=== PATIENT | male | born 1990 | race Two or more races ===

== ENCOUNTER 2017-01-30 09:54 | Emergency (ER) | payer SELFPAY ==
[2017-01-30 10:06] VITALS: BP 145/83
[2017-01-30] MEDS ORDERED: KETOROLAC TROMETHAMINE 60 MG/2 ML SDV IM ONE (10:27)
--- NOTE | 2017-01-30 10:46 | ER Document Report ---
HPI - HPI Patient complains to provider of: left lower back pain Onset: Other Onset/Duration: Sudden Quality of pain: Achy Severity: Moderate Pain Level: 4 Context: Patient complains of left lower lumbar pain since Wednesday. Patient admits to having previous episodes in the past after heavy lifting. Pain radiates down left leg, patient denies loss of control of bowels or bladder. Associated Symptoms: None Exacerbated by: Movement Relieved by: Remaining still Similar symptoms previously: Yes Recently seen / treated by doctor: No - ROS ROS below otherwise negative: Yes Systems Reviewed and Negative: Yes All other systems reviewed and negative - CONSTITUTIONAL Constitutional: DENIES: Fever - EENT EENT: DENIES: Congestion - NEURO Neurology: DENIES: Headache - CARDIOVASCULAR Cardiovascular: DENIES: Chest pain - RESPIRATORY Respiratory: DENIES: Trouble Breathing - GASTROINTESTINAL Gastrointestinal: DENIES: Abdominal Pain - URINARY Urinary: DENIES: Dysuria, Urgency, Frequency - MUSCULOSKELETAL Musculoskeletal: REPORTS: Back Pain - DERM Skin Color: Normal Skin Problems: None Past Medical History - General Information source: Patient, Relative - Social History Smoking Status: Never Smoker Frequency of alcohol use: Occasional Drug Abuse: None Lives with: Family Family History: Reviewed & Not Pertinent Patient has suicidal ideation: No Patient has homicidal ideation: No - Medical History Medical History: Negative Surgical Hx: Negative Vertical Provider Document - CONSTITUTIONAL Agree With Documented VS: Yes Exam Limitations: No Limitations General Appearance: WD/WN, No Apparent Distress - INFECTION CONTROL TRAVEL OUTSIDE OF THE [place] IN LAST 30 DAYS: No - HEENT HEENT: Atraumatic, Normocephalic - RESPIRATORY Respiratory: Breath Sounds Normal, No Respiratory Distress O2 Sat by Pulse Oximetry: 99 - CARDIOVASCULAR Cardiovascular: Regular Rate, Regular Rhythm - GI/ABDOMEN Gastrointestinal: Abdomen Soft, Abdomen Non-Tender, Normal Bowel Sounds - BACK Notes: L-spine nontender, left lumbar muscles and left buttocks tender to palpation. Pain with right leg raise, but pain is reproduced with left leg raise. - MUSCULOSKELETAL/EXTREMETIES Musculoskeletal/Extremeties: VICENTE CARRANZA - NEURO Level of Consciousness: Awake, Alert, Appropriate - DERM Integumentary: Warm, Dry, No Rash Course - Vital Signs Vital signs: Temp Pulse Resp BP Pulse Ox 99 F 64 16 145/83 H 99 01/30/17 09:58 01/30/17 09:58 01/30/17 09:58 01/30/17 09:58 01/30/17 09:58 Discharge - Discharge Clinical Impression: Back pain of lumbar region with sciatica Condition: Good Disposition: HOME, SELF-CARE Instructions: Ice Packs ([facility]), Warm Packs ([facility]), Low Back Pain ([facility]), Muscle Strain ([facility]), Pain Medication Injection ([facility]) Additional Instructions: Muscle relaxers and ibuprofen as prescribed Heat or ice packs to your back No heavy lifting for 1 week Follow-up with your doctor if not better in 1 week Return as needed Prescriptions: Cyclobenzaprine HCl [Flexeril 5 mg Tablet] 5 mg PO TID #15 tablet Ibuprofen 800 mg PO PRN PRN #30 tablet PRN Reason: Forms: Return to Work
== END 2017-01-30 11:07 | disposition home or self-care (01) ==
LOC: ER 09:54
DX: M54.30 Sciatica, unspecified side (principal); M54.5 Low back pain; M79.605 Pain in left leg; X50.9XXA Other and unspecified overexertion or strenuous movements or postures, initial encounter
CPT/HCPCS: 99283; 96372; J1885

== ENCOUNTER 2017-02-09 06:44 | Emergency (ER) | payer SELFPAY ==
--- NOTE | 2017-02-09 08:11 | ER Document Report ---
ED Neck/Back Problem - General Chief Complaint: Back Pain Stated Complaint: BACK PAIN Time Seen by Provider: 02/09/17 07:53 Mode of Arrival: Ambulatory Information source: Patient Notes: Patient is a 26-year-old male who presents to the ER today for left lower back pain since January 30. Patient was here seen at the ER on January 30, given Motrin and Flexeril but states it is not helping. He states that the back pain is gotten worse. He denies any injury but does do manual labor at work daily. He denies any burning with urination, hematuria, history of kidney stones, numbness , tingling, loss of bladder or bowel function. TRAVEL OUTSIDE OF THE [place] IN LAST 30 DAYS: No Past Medical History - General Information source: Patient, Relative - Social History Smoking Status: Never Smoker Family History: Reviewed & Not Pertinent Patient has suicidal ideation: No Patient has homicidal ideation: No Renal/ Medical History: Denies: Hx Peritoneal Dialysis Review of Systems - Review of Systems Constitutional: No symptoms reported EENT: No symptoms reported Cardiovascular: No symptoms reported Respiratory: No symptoms reported Gastrointestinal: No symptoms reported Genitourinary: No symptoms reported Male Genitourinary: No symptoms reported Musculoskeletal: See HPI Skin: No symptoms reported Hematologic/Lymphatic: No symptoms reported Neurological/Psychological: No symptoms reported Physical Exam - Vital signs Vitals: Temp Pulse Resp BP Pulse Ox 98.4 F 82 18 147/73 H 98 02/09/17 06:49 02/09/17 06:49 02/09/17 06:49 02/09/17 06:49 02/09/17 06:49 - Notes Notes: PHYSICAL EXAMINATION: GENERAL: Appears uncomfortable, holding left flank in no acute distress. HEAD: Atraumatic, normocephalic. EYES: Pupils equal round and reactive to light, extraocular movements intact, sclera anicteric, conjunctiva are normal. ENT: ear canals without erythema or foreign body, TMs pearly bedoya with good bony landmarks, nares patent, oropharynx clear without exudates. Moist mucous membranes. NECK: Normal range of motion, supple without lymphadenopathy LUNGS: CTAB and equal. No wheezes rales or rhonchi. HEART: Regular rate and rhythm without murmurs ABDOMEN: Soft, no tenderness. No guarding, no rebound BACK: no vertebral tenderness, normal ROM GI/: left CVA tenderness EXTREMITIES: Normal range of motion, no pitting edema. No cyanosis. NEUROLOGICAL: Cranial nerves grossly intact. Normal sensory/motor exams. PSYCH: Normal mood, normal affect. SKIN: Warm, Dry, normal turgor, no rashes or lesions noted Course - Re-evaluation Re-evalutation: 02/09/17 09:29 Patient's lab work is unremarkable today, normal CRP, normal white count, normal urinalysis without hematuria or signs of infection. Patient will be sent home on a different muscle relaxer and told to use heat pack as he has not been doing that. - Vital Signs Vital signs: Temp Pulse Resp BP Pulse Ox 98.4 F 82 18 147/73 H 98 02/09/17 06:49 02/09/17 06:49 02/09/17 06:49 02/09/17 06:49 02/09/17 06:49 - Laboratory Result Diagrams: 02/09/17 08:25 Discharge - Discharge Clinical Impression: Low back pain Qualifiers: Chronicity: acute Back pain laterality: left Sciatica presence: without sciatica Qualified Code(s): M54.5 - Low back pain Condition: Stable Disposition: HOME, SELF-CARE Instructions: Warm Packs ([facility]), Muscle Strain ([facility]) Additional Instructions: Return immediately for any new or worsening symptoms. Follow up with primary care provider, call tomorrow to make followup appointment. Prescriptions: Methocarbamol [Robaxin 500 mg Tablet] 1,000 mg PO BID PRN #40 tablet PRN Reason: Forms: Return to Work
[2017-02-09 08:42] LABS: ABSOLUTE EOSINOPHILS # (AUTO) 0.1 10^3/uL (0.0-0.6); ABSOLUTE MONOCYTES (AUTO) 0.6 10^3/uL (0.1-1.4); APPEARANCE,URINE CLEAR; BASOPHILS % (AUTO) 0.6 % (0-2); BILIRUBIN,URINE NEGATIVE (NEGATIVE); EOSINOPHILS % (AUTO) 1.6 % (0-6); GLUCOSE, URINE NEGATIVE (NEGATIVE); HEMATOCRIT 48.4 % (37.9-51.0); HEMOGLOBIN 16.9 g/dL (13.5-17.0); HGB HCT DIFFERENCE 2.3; KETONES,URINE NEGATIVE (NEGATIVE); LEUKOCYTE ESTERASE,URINE NEGATIVE (NEGATIVE); LYMPHOCYTES % (AUTO) 34.4 % (13-45); MEAN CORPUSCULAR HEMOGLOBIN 31.7 pg (27.0-33.4); MEAN CORPUSCULAR VOLUME 91 fl (80-97); NITRITE,URINE NEGATIVE (NEGATIVE); PROTEIN,URINE NEGATIVE (NEGATIVE); RED BLOOD COUNT 5.34 10^6/uL (4.35-5.55); RED CELL DISTRIBUTION WIDTH 12.6 % (11.5-14.0); SEGMENTED NEUTROPHILS % (AUTO) 52.4 % (42-78); UROBILINOGEN,URINE NEGATIVE mg/dL (<2.0); WHITE BLOOD COUNT 5.7 10^3/uL (4.0-10.5)
[2017-02-09] MEDS ORDERED: METHOCARBAMOL 500 MG TABLET PO ONE (08:59)
[2017-02-09] MEDS ORDERED: HYDROCODONE/ACETAMINOPHEN 5-325 MG TABLET PO ONE (08:59)
[2017-02-09 09:24] LABS: ERYTHROCYTE SEDIMENTATION RATE 5 mm/hr (0-15)
[2017-02-09 10:21] VITALS: BP 130/77
== END 2017-02-09 10:21 | disposition home or self-care (01) ==
LOC: ER 06:44
DX: M54.5 Low back pain (principal)
CPT/HCPCS: 36415; 81001; 85025; 85652; 86140; 99283